=== PATIENT | female | born 1990 | race Caucasian/White ===

== ENCOUNTER 2019-09-04 09:22 | Emergency (ER) | payer SELFPAY ==
[2019-09-04] MEDS ORDERED: Motrin,Rufen800 MG PO (11:31)
== END 2019-09-04 11:35 | disposition home or self-care (01) ==
LOC: ED 09:22
DX: S70.01XA Contusion of right hip, initial encounter (principal); F17.200 Nicotine dependence, unspecified, uncomplicated; V89.9XXA Person injured in unspecified vehicle accident, initial encounter; Y93.89 Activity, other specified; Y92.89 Other specified places as the place of occurrence of the external cause; Y99.8 Other external cause status